=== PATIENT | female | born 1950 | race Caucasian/White ===

== ENCOUNTER → 2016-10-24 | Outpatient (CLI) | payer BC, OTHER ==
[~2016-10-24] MED LIST: BENADRYL-DPS25 MG PO; CALTRATE-600 W600 MG PO; CENTRUM SILVER1 EAC1 PO; EFFEXOR XR75 MG PO; FEMARA DPS2.5 MG PO; FLEXERIL-DPS10 MG PO; FOSAMAX70 MG PO; OXY IR DPS5 MG PO; PRILOSEC DPS20 MG PO; SENOKOT S1 TAB PO; TYLENOL DPS325 MG PO; ULTRAM DPS50 MG PO; VITAMIN D-32000 UNI1 PO; XARELTO10 MG PO
== END | disposition home or self-care (01) ==
LOC: RAD.S 14:10
DX: Z09 Encounter for follow-up examination after completed treatment for conditions other than malignant neoplasm (principal); Z92.3 Personal history of irradiation; Z98.890 Other specified postprocedural states